=== PATIENT | female | born 1965 | race Caucasian/White ===

== ENCOUNTER 2022-12-27 13:30 | Outpatient (CLI) | payer BC | END 2022-12-27 13:31 | disposition home or self-care (01) | LOC: CSHMAMMO 13:30 | PROVIDERS: ATTEND Obstetrics & Gynecology | DX: N64.4 Mastodynia (principal); N63.20 Unspecified lump in the left breast, unspecified quadrant; Z79.890 Hormone replacement therapy; Z91.89 Other specified personal risk factors, not elsewhere classified; Z80.41 Family history of malignant neoplasm of ovary | CPT/HCPCS: 77066; G0279 ==